=== PATIENT | female | born 1950 | race Caucasian/White ===

== ENCOUNTER 2016-11-28 11:31 | Inpatient (IN) | payer MEDICARE, OTHER ==
[~2016-11-28] VITALS: Ht 152.4 cm; Wt 75.2 kg
[~2016-11-28 11:31] MED LIST: CIPR500T4 PO; HYDR-762 PO
[2016-11-28] MEDS ORDERED: morphine 4 MG/ML VIAL IV STA (12:18)
[2016-11-28] MEDS ORDERED: ONDANSETRON 4 MG INJ IV STA (12:18)
[2016-11-28] MEDS ORDERED: ACETAMINOPHEN 325 MG TAB PO STA (12:18)
[2016-11-28] MEDS ORDERED: SOD CHLORIDE 0.9% 1,000 ML IV STA (12:18)
[2016-11-28 12:57] LABS: ADD SCAN DIFF NO
--- NOTE | 2016-11-28 12:59 | RADRPT ---
PROCEDURE: Chest Radiograph. CLINICAL INDICATION: Back pain TECHNIQUE: Single frontal chest radiograph. COMPARISON: Chest radiograph 01/21/2016 FINDINGS: The cardiomediastinal silhouette is within normal limits. No infiltrate or effusion is seen. Th e bones are intact. IMPRESSION: 1. Unremarkable chest radiograph. RPTAT: AA .Issac Dumas MD, MD Date Time Electronically viewed and signed by .Issac Dumas MD, on 11/28/2016 12:58 .B/
[2016-11-28 13:00] LABS: BASOPHILS % 0.3 % (0.0-2.0); EOSINOPHILS % 0.2 % (0.0-7.0); HEMATOCRIT 42.2 % (37.0-47.0); LYMPHOCYTES # 2.4 10^3/ul (0.8-2.9); LYMPHOCYTES % 17.3 % (15.0-51.0); MEAN CORPUSCULAR HEMOGLOBIN 29.8 pg (29.0-33.0); MEAN CORPUSCULAR HGB CONC 33.2 g/dl (32.0-37.0); MEAN CORPUSCULAR VOLUME 89.8 fl (82.0-101.0); MEAN PLATELET VOLUME 9.4 fl (7.4-10.4); MONOCYTE # 0.9 10^3/ul (0.3-0.9); MONOCYTES % 6.6 % (0.0-11.0); NEUTROPHIL # 10.5 10^3/ul (1.6-7.5); NEUTROPHILS % 75.2 % (39.0-77.0); PLATELET COUNT 303 10^3/UL (140-415); RED CELL DISTRIBUTION WIDTH 12.7 % (11.5-14.5)
[2016-11-28 13:17] LABS: ALBUMIN 4.5 g/dl (3.3-4.9); CHLORIDE 97 mmol/L (97-110)
[2016-11-28 13:18] LABS: POTASSIUM 3.7 mmol/L (3.5-5.1); PROTIME 13.2 Sec (12.2-14.2)
[2016-11-28 13:19] LABS: CREATININE 0.84 mg/dl (0.44-1.00); PARTIAL THROMBOPLASTIN TIME 30.3 Sec (25.0-35.0)
[2016-11-28 13:20] LABS: ALANINE AMINOTRANSFERASE 30 IU/L (13-69); ALBUMIN/GLOBULIN RATIO 1.02; ALKALINE PHOSPHATASE 113 IU/L (42-121); ASPARTATE AMINO TRANSFERASE 27 IU/L (15-46); BLOOD UREA NITROGEN 11 mg/dl (7-20); CALCIUM 9.7 mg/dl (8.4-10.2); CARBON DIOXIDE 26 mmol/L (21-31); GLUCOSE 101 mg/dl (70-220); TOTAL PROTEIN 8.9 g/dl (6.1-8.1)
[2016-11-28 13:36] LABS: TROPONIN-I < 0.012 ng/ml (0.00-0.12)
[2016-11-28 13:44] LABS: URINE BLOOD (Dip) POC 1+ (NEGATIVE)
[2016-11-28] MEDS ORDERED: CEFTRIAXONE 1 GM/50 ML (PMX) 50 ML IVPB ONE (14:00)
[2016-11-28 14:05] LABS: ADD UMIC YES; URINE BILIRUBIN (Dip) NEGATIVE (NEGATIVE); URINE BLOOD (Dip) TRACE (NEGATIVE); URINE COLOR LT. YELLOW (YELLOW); URINE GLUCOSE (Dip) NEGATIVE (NEGATIVE); URINE KETONES (Dip) 15 (NEGATIVE); URINE LEUKOCYTE ESTERASE (Dip) 1+ (NEGATIVE); URINE NITRITE (Dip) POSITIVE (NEGATIVE); URINE TOTAL PROTEIN (Dip) NEGATIVE (NEGATIVE); URINE UROBILINOGEN (Dip) 0.2 E.U./dL (0.1-1.0)
[2016-11-28 14:14] LABS: BACTERIA,URINE MANY; URINE RBCS 0-2 /HPF (0)
[2016-11-28] MEDS ORDERED: VANCOMYCIN 1 GM (PMX) 250 ML IVPB STA (14:25)
[2016-11-28] MEDS ORDERED: SODIUM CHLORIDE 0.9% 1L BAG IV* STA (14:25)
[2016-11-28 14:53] VITALS: TEMP 99.5
[2016-11-28] MEDS ORDERED: ONDANSETRON 4 MG INJ IV PRN ×2 (15:00→16:30)
[2016-11-28] MEDS ORDERED: ACETAMINOPHEN 325 MG TAB PO PRN ×2 (15:00→16:30)
--- NOTE | 2016-11-28 15:41 | ERA ---
ER Documentation Chief Complaint Date/Time DATE: 11/28/16 TIME: 15:33 Chief Complaint LOWER BACK PAIN AND WEAKNESS FOR 2-WEEKS. STRONG SMELLING URINE. HPI This is a very pleasant 66-year-old female that presents to the emergency department complaining of intermittent bilateral flank pain for the past 2 weeks. She has had associated symptoms of dysuria frequency and urgency with foul-smelling urine. The patient had seen her primary care physician, Dr. Odom , 3 times regarding the symptoms and diagnosed with back pain. She was given baclofen and meloxicam. She indicates over the past 24 hours she has had a tactile fever with shaking chills, generalized weakness a decrease in appetite and nausea. She however denies any hemoptysis hematemesis or melanotic stools. She has a past medical history of hypertension and has been compliant with all of her medications. She denies any shortness of breath at rest or exertion. She has no chest pain or pressure that radiates to the neck arm back or jaw. She states that the flank pain is a dull achy sensation, persistent with no alleviating or exacerbating factors he denies any recent remote trauma to her back. She has no changes in her bladder or bowel frequency. She denies any saddle anesthesia. ROS All systems reviewed and are negative except as per history of present illness. Medications Home Meds Active Scripts Hydrocodone Bit-Acetaminophen* ([place]*) 10-325 Mg Tablet, 1 TAB PO Q6 Y for PAIN , #7 TAB Prov:APARNA COTTO MD 01/21/16 Ciprofloxacin Hcl* (Ciprofloxacin Hcl*) 500 Mg Tablet, 500 MG PO BID for 7 Days , TAB Prov:APARNA COTTO MD 01/21/16 Allergies Allergies: Coded Allergies: No Known Allergy (Unverified , 01/21/16) PMhx/Soc Medical and Surgical Hx: pt denies Surgical Hx History of Surgery: No Anesthesia Reaction: No Hx Neurological Disorder: No Hx Respiratory Disorders: No Hx Cardiac Disorders: Yes (HTN) Hx Psychiatric Problems: No Hx Miscellaneous Medical Probl: No Hx Alcohol Use: No Hx Substance Use: No Hx Tobacco Use: No Smoking Status: Never smoker Physical Exam Vitals Vital Signs Date Time Temp Pulse Resp B/P Pulse Ox O2 Delivery O2 Flow Rate FiO2 11/28/16 14:53 99.5 88 17 102/53 99 Room Air 11/28/16 11:34 100.7 105 20 147/67 97 Physical Exam Constitutional:Well-developed. Well-nourished. HEENT:Normocephalic. Atraumatic.Pupils were equal round reactive to light. Dry mucous membranes.No tonsillar exudates. Neck: No nuchal rigidity. No lymphadenopathy. No posterior cervical spine tenderness or step-offs. Respiratory: Not using accessory muscles of respiration.Lungs were clear to auscultation bilaterally. No rhonchi. No rales. No wheezing. Cardiovascular: Regular rate regular rhythm.No murmurs. No rubs were appreciated.S1, S2 normal. Distal pulses are palpable 2+ bilaterally. GI: Abdomen was soft. Nontender. Non Distended. No pulsatile abdominal masses or bruits. No rebound. No guarding. Bowel sounds were present and normal. Bilateral CVA tenderness. Muscle skeletal: Full range of motion of both the upper and lower extremities bilaterally.Normal muscle tone.No assymetrical calf tenderness or swelling. Skin: No petechia, no purpura. No lesions on the palms or the soles of the feet. No maculopapular rash. NEURO: Patient was alert, awake, orientated x3.No facial droop. Gait observed and normal with no ataxia.Speech had regular rate and rhythm. No focal neurological deficits. Result Diagram: 11/28/16 1240 11/28/16 1240 Results 24 hrs Laboratory Tests Test 11/28/16 12:40 11/28/16 13:15 11/28/16 13:47 Activated Partial Thromboplast Time 30.3Sec Alanine Aminotransferase (ALT/SGPT) 30IU/L Albumin 4.5g/dl Albumin/Globulin Ratio 1.02 Alkaline Phosphatase 113IU/L Anion Gap 2 Aspartate Amino Transf (AST/SGOT) 27IU/L Basophils # 0.010^3/ul Basophils % 0.3% Blood Urea Nitrogen 11mg/dl Calcium Level 9.7mg/dl Carbon Dioxide Level 26mmol/L Chloride Level 97mmol/L Creatinine 0.84mg/dl Direct Bilirubin 0.00mg/dl Eosinophils # 0.010^3/ul Eosinophils % 0.2% Globulin 4.40g/dl Glucose Level 101mg/dl Hematocrit 42.2% Hemoglobin 14.0g/dl INR International Normalized Ratio 1.00 Indirect Bilirubin 1.0mg/dl Lactic Acid Level 1.1mmol/L Lipase 35U/L Lymphocytes # 2.410^3/ul Lymphocytes % 17.3% Mean Corpuscular Hemoglobin 29.8pg Mean Corpuscular Hemoglobin Concent 33.2g/dl Mean Corpuscular Volume 89.8fl Mean Platelet Volume 9.4fl Monocytes # 0.910^3/ul Monocytes % 6.6% Neutrophils # 10.510^3/ul Neutrophils % 75.2% Nucleated Red Blood Cells # 0.010^3/ul Nucleated Red Blood Cells % 0.0/100WBC Platelet Count 38063^3/UL Potassium Level 3.7mmol/L Prothrombin Time 13.2Sec Prothrombin Time Ratio 1.0 Red Blood Count 4.7010^6/ul Red Cell Distribution Width 12.7% Sodium Level 121mmol/L Total Bilirubin 1.0mg/dl Total Protein 8.9g/dl Troponin I < 0.012ng/ml White Blood Count 14.010^3/ul Urine Bacteria MANY Urine Bilirubin NEGATIVE Urine Clarity CLEAR Urine Color LT. YELLOW Urine Epithelial Cells MODERATE Urine Glucose NEGATIVE% Urine Hemoglobin TRACE Urine Ketones 15 Urine Leukocyte Esterase 1+ Urine Microscopic RBC 0-2/HPF Urine Microscopic WBC 10-25/HPF Urine Nitrite POSITIVE Urine Specific [place] 1.020 Urine Total Protein NEGATIVE Urine Urobilinogen 0.2 E.U./dL Urine pH 5.5 Bedside Urine Blood 1+ Bedside Urine Glucose (UA) Negative Bedside Urine Ketones (LAB) 1+ Bedside Urine Leukocyte Esterase (L Trace Bedside Urine Nitrite (LAB) Positive Bedside Urine Protein (LAB) 1+ Bedside Urine pH (LAB) 5.5 Current Medications Medications (Trade) Dose Ordered Sig/Blake Route PRN Reason Start Time Stop Time Status Last Admin Dose Admin Acetaminophen 650 mg 650 mg ONCE STAT PO 11/28/16 12:18 11/28/16 12:20 DC 11/28/16 12:57 Sodium Chloride (NS) 1,000 ml @ 1,000 mls/hr Q1H STAT IV 11/28/16 12:18 11/28/16 13:17 DC 11/28/16 12:57 Morphine Sulfate (morphine) 4 mg ONCE STAT IV 11/28/16 12:18 11/28/16 12:20 DC 11/28/16 12:58 Ondansetron HCl 4 mg 4 mg ONCE STAT IV 11/28/16 12:18 11/28/16 12:20 DC 11/28/16 12:58 Ceftriaxone Sodium (Rocephin) 50 ml @ 100 mls/hr ONCE ONCE IVPB 11/28/16 14:00 11/28/16 14:29 DC 11/28/16 14:00 Sodium Chloride 1230 ml 1,230 ml BOLUS OVER 2 HOURS STAT IV* 11/28/16 14:25 11/28/16 14:27 DC 11/28/16 14:37 Vancomycin HCl (Vancocin) 250 ml @ 125 mls/hr ONCE STAT IVPB 11/28/16 14:25 11/28/16 16:24 11/28/16 14:37 Ondansetron HCl (Zofran Inj) 4 mg ER BRIDGE PRN IV NAUSEA AND/OR VOMITING 11/28/16 15:00 11/29/16 14:59 Acetaminophen (Tylenol Tab) 650 mg ER BRIDGE PRN PO MILD PAIN/FEVER 11/28/16 15:00 11/29/16 14:59 Procedures/MDM The patient presented to the emergency department with back pain. My differential diagnosis included but was not limited to spinal origins of the pain such as fracture, osteomyelitis, epidural abscess, neoplasm, spondylolishtesis, discogenic, cauda equina syndrome or musculoligamentous. Nonspinal causes such as AAA, upper UTI, renal colic, aortic dissection, abdominal neoplasm were also considered as an etiology into their pain. IV access was established by nursing staff. The patient met SIRS and sepsis criteria and therefore the patient was placed in a commercial airplane pilot continuous pulse oximetry given aspirin for analgesic medication and a total of 30 cc/kg of normal saline. The patient was given IV ceftriaxone & as she had a urinary tract infection with concerns for pyelonephritis. 12 Lead EKG tracing ordered and reviewed by myself showed: Normal sinus rhythm of 94 bpm and no arrhythmia. MS interval normal. QRS duration normal. No ST segment elevation No ST segment depression. No changes consistent with acute ischemia. The patient was also hyponatremic with a serum sodium of 121. The patient generalized myalgias, increased sleepiness, and therefore did feel she required admission to the telemetry services to be further monitored for any further changes in the patient's hyponatremia. Given the patient had no neurological deficits at this time I did not start hypertonic saline. I will replenish the patient's intravascular volume with IV normal saline and repeat the patient's electrolytes to see if there is improvement of her serum sodium. Patient's infectious symptoms have not stabilized and the patient is at risk of rapid decompensation. The patient will be admitted for careful hydration, antibiotic therapy, and infectious source control. Sepsis Assessment: Infectious Source: pyleonephritis Severe Sepsis Managment: Blood Cultures X 2 before broad spectrum antibiotics initiated within 3 hours of recognition. 30 ml/kg NS bolus Completed Initial Lactate: normal Repeat Lactate not indicated as initial < 2.0 I considered further perfusion assessment with CVP measurement, SCVO2, bedside ultrasound volume assessment, passive leg raise, trial of further fluid bolus. And preceded with IV fluid hydration The patient will be admitted in serious condition to the hospitalist Dr. Smith. Critical Care: Time: 40 minutes Treatments/Evaluations: Close monitoring and treatment of unstable vital signs, cardiorespiratory, and neurologic status, while maintaining tight balance of fluid, respiratory, and cardiac interventions. Time does not include performing any of the above billable procedures. Departure Diagnosis: Primary Impression: Pyelonephritis Additional Impressions: Hyponatremia Sepsis Qualified Code: A41.9 - Sepsis, due to unspecified organism Condition: Serious SERINA CANAS Nov 28, 2016 15:41
[2016-11-28 16:05] LABS: ANION GAP 18 (8-16); SODIUM 137 mmol/L (135-144)
[2016-11-28] MEDS ORDERED: NACL 0.9% 3 ML SYG IV SCH (16:30)
[2016-11-28] MEDS ORDERED: ZOLPIDEM 5 MG TAB PO PRN (16:30)
[2016-11-28] MEDS ORDERED: DOCUSATE SODIUM 100 MG CAP PO PRN (16:30)
[2016-11-28] MEDS ORDERED: morphine 2 MG INJ IV PRN (16:30)
[2016-11-28] MEDS ORDERED: HYDROCODONE/APAP (5/325) TAB PO PRN (16:30)
--- NOTE | 2016-11-28 17:12 | HP ---
DATE OF ADMISSION: 11/28/2016 CHIEF COMPLAINT: Left-sided back pain. HISTORY OF PRESENT ILLNESS: The patient is a 66-year-old female with no medical history. The patie nt presents with 2 weeks of lower back pain. She states that she did have some dysuria, but that is now resolved. In the ED, she was noted to have an elevated WBC count and UA suggesting of a UTI. She has no other complaints at this time. She denies any burning urination at this time. PAST MEDICAL HISTORY: Denies. PAST SURGICAL HISTORY: Denies. HOME MEDICATIONS: Denies. ALLERGIES: NO KNOWN DRUG ALLERGIES. FAMILY HISTORY: Diabetes. SOCIAL HISTORY: Denies any alcohol, tobacco or drugs. REVIEW OF SYSTEMS: A 12-point review of systems negative except as in HPI. PHYSICAL EXAMINATION: VITAL SIGNS: Temperature max 100.7, temperature current is 99.5, pulse 88, respiratory rate 17, blo od pressure is 102/53, saturation 99% on room air. GENERAL: No acute distress, alert and oriented. HEENT: Normocephalic, atraumatic. Pupils equal, round, and reactive to light. LUNGS: Clear to auscultation. CARDIOVASCULAR: Regular rate and rhythm. ABDOMEN: Nondistended, nontender, soft. EXTREMITIES: No clubbing, cyanosis, or edema. LABORATORY DATA: WBC 14.0, hemoglobin is 14.0, and platelets are 303. Chemistry within normal limi ts except for anion gap of 18. Lactic acid is 1.1. Total protein is 8.9. is 4.4. INR is 1. UA positive nitrites, leukocyte esterase is 1+, WBCs 10 to 25. DIAGNOSTICS: Chest x-ray is unremarkable. ASSESSMENT AND PLAN: 1. Sepsis secondary to pyelonephritis. We will treat with Rocephin IV. We will follow up on urine culture. 2. Prophylaxis: Lovenox. Dictated By: EVERETTE HOFFMAN MD BS/NTS Conf#: [id number] DID#: [id number]
[2016-11-28] MEDS: SOD CHLORIDE 0.9% 1,000 ML IV SCH (18:58)
[2016-11-28 22:00] VITALS: BP 119/59; PULSE 101; RESP 18; Ht 152.4 cm; Wt 75.2 kg
[2016-11-28 22:05] VITALS: PULSE 87
[2016-11-28] MEDS ORDERED: BACL10TA PO (22:37)
[2016-11-28] MEDS ORDERED: MELO-109 PO (22:37)
[2016-11-28] MEDS ORDERED: BENA10TA48 PO (22:37)
[2016-11-29] VITALS (8 sets, daily range): BP systolic 102–132; BP diastolic 54–61; PULSE 63–84; RESP 18
[2016-11-29] MEDS: SOD CHLORIDE 0.9% 1,000 ML IV SCH ×3 (00:21→16:30)
[2016-11-29 06:55] LABS: ADD SCAN DIFF NO
[2016-11-29 07:06] LABS: BASOPHILS % 0.3 % (0.0-2.0); EOSINOPHILS # 0.1 10^3/ul (0.0-0.5); EOSINOPHILS % 1.2 % (0.0-7.0); HEMATOCRIT 33.8 % (37.0-47.0); HEMOGLOBIN 11.2 g/dl (12.0-16.0); LYMPHOCYTES # 2.6 10^3/ul (0.8-2.9); LYMPHOCYTES % 24.4 % (15.0-51.0); MEAN CORPUSCULAR HEMOGLOBIN 30.3 pg (29.0-33.0); MEAN CORPUSCULAR HGB CONC 33.1 g/dl (32.0-37.0); MEAN CORPUSCULAR VOLUME 91.4 fl (82.0-101.0); MEAN PLATELET VOLUME 9.9 fl (7.4-10.4); MONOCYTE # 0.9 10^3/ul (0.3-0.9); MONOCYTES % 7.9 % (0.0-11.0); NEUTROPHILS % 65.8 % (39.0-77.0); PLATELET COUNT 246 10^3/UL (140-415); RED CELL DISTRIBUTION WIDTH 12.7 % (11.5-14.5); WHITE BLOOD COUNT 10.7 10^3/ul (4.8-10.8)
[2016-11-29 07:13] LABS: POTASSIUM 3.9 mmol/L (3.5-5.1)
[2016-11-29 07:15] LABS: CREATININE 0.66 mg/dl (0.44-1.00)
[2016-11-29 07:16] LABS: CALCIUM 8.7 mg/dl (8.4-10.2); CHOL/HDL RATIO 3.5 RATIO; PHOSPHORUS 3.1 mg/dl (2.5-4.9)
[2016-11-29 07:31] LABS: T3 UPTAKE 35.8 % (23.5-40.5)
[2016-11-29] MEDS ORDERED: ENOXAPARIN 40 MG/0.4 ML SYG SC SCH (09:00)
--- NOTE | 2016-11-29 11:43 | PDOCDIS ---
Discharge Instructions CONDITION Patient Condition: Good HOME CARE INSTRUCTIONS: Diet Instructions: Reduced Calorie ACTIVITY: Activity Restrictions: No Restrictions FOLLOW UP/APPOINTMENTS Appointments F/U WITH YOUR PCP IN 1-2 WEEKS EVERETTE HOFFMAN Nov 29, 2016 11:42
[2016-11-29] MEDS ORDERED: CIPR500T4 PO (11:51)
[2016-11-29] MEDS ORDERED: CEFTRIAXONE 1 GM/50 ML (PMX) 50 ML IVPB SCH (14:00)
--- NOTE | 2016-11-29 16:29 | DS ---
DATE OF ADMISSION: 11/28/2016 DATE OF DISCHARGE: 11/29/2016 DISCHARGE DIAGNOSIS: Sepsis secondary to a urinary tract infection - now resolved. Discharged with p.o. antibiotics. HOSPITAL COURSE: The patient is a 66-year-old female with no medical history. The patient presents with signs of sepsis, as well as lower back pain. She did have some dysuria prior to arrival, but had resolved. When she arrived, she did have signs of sepsis with a white count of 14.0, and T-max of 100.7. The patient was started on Rocephin. Her sepsis did resolve. She was felt to be stable for discharge. Her pain was actually mostly in her lower abdomen, suggesting more of a cystitis pic ture. Her pain in her lower back was bilateral and likely musculoskeletal in origin; but, nonethele ss, the patient was felt to require p.o. antibiotics on discharge. The patient did receive IV fluid s. The patient was felt to be stable for discharge and on day of discharge, vitals, labs, physical exam were stable. She had no acute complaints; her questions were answered. CONDITION ON DISCHARGE: Stable. DISPOSITION: To home. MEDICATIONS: Patient is to continue usual home medications. She was given a prescription for Cipro 500 mg p.o. b.i.d. for 7 days. FOLLOWUP: She is to follow up with her PCP in 1 to 2 weeks. TIME SPENT: Greater than 30 minutes were spent in coordinating discharge of patient. Dictated By: EVERETTE HOFFMAN MD BS/NTS Conf#: [id number] DID#: [id number]
[2016-11-30] MEDS ORDERED: INFLUENZA VIRUS VACCINE 0.5 ML (DISPENSING) IM* ONE (09:00)
== END 2016-11-29 16:08 | disposition home or self-care (01) | DRG 872 ==
LOC: FTE 11:31 → TEL 14:53
PROVIDERS: ADMIT Hospitalist; ATTEND Hospitalist
DX: A41.9 Sepsis, unspecified organism (principal); E87.1 Hypo-osmolality and hyponatremia; N39.0 Urinary tract infection, site not specified
CPT/HCPCS: 36415; 71010; 80048; 80053; 80061; 81001; 81003; 83036; 83605; 83690; 83735; 84100; 84436; 84479; 84484; 85025; 85610; 85730; 87040; 87086; 93005; 96361; 96365; 96366; 96367; 96375; J0696; J1650; J2270; J2405; J3370; J7030

== ENCOUNTER 2017-07-06 11:09 | Emergency (ER) | payer MEDICARE, OTHER ==
[~2017-07-06] VITALS: Ht 149.9 cm; Wt 75.5 kg
[~2017-07-06 11:09] MED LIST changes: +BACL10TA PO; +BENA10TA48 PO; +MELO-216 PO
[2017-07-06 11:33] VITALS: Ht 149.9 cm; Wt 75.5 kg
[2017-07-06] MEDS ORDERED: ONDANSETRON (ODT) 4 MG TAB ODT STA (12:15)
[2017-07-06] MEDS ORDERED: HYDROCODONE/APAP (5/325) TAB PO ONE (12:30)
--- NOTE | 2017-07-06 13:18 | RADRPT ---
PROCEDURE: CT Brain without contrast. CLINICAL INDICATION: Headache. TECHNIQUE: A CT of the brain was performed on multidetector high-resolution CT scanner utilizing a xial sections from the skull base through the vertex without contrast. The scan was reviewed in sof t tissue brain and high frequency resolution bone algorithm windows. Images were reviewed on a high -resolution PACS workstation. One or more the following does reduction techniques were utilized: Aut omated exposure control, adjustment of the mA/ or kV according to patient's size, or use of iterativ e reconstruction technique. The exam CTDI = 43.48 mGy and the DLP = 630.2 mGy-cm. COMPARISON: None available. FINDINGS: The ventricles and sulci are mildly prominent indicative of volume loss. There is no intracranial h emorrhage, mass effect or midline shift. No abnormal intra-axial or extra-axial fluid collections a re seen. The ibarra/white matter differentiation is preserved. There are mild scattered foci of hypoattenuation in the white matter, which are nonspecific in etiol ogy but likely reflect chronic small vessel ischemic changes. There are mild intracranial vascular calcifications consistent with atherosclerosis. The visualized paranasal sinuses are essentially ludmila ar. IMPRESSION: 1. No acute intracranial hemorrhage, transcortical infarction or mass effect. 2. Mild intracranial atherosclerosis and chronic small vessel ischemic changes. 3. Mild generalized cerebral volume loss. RPTAT: JJ .Spring Washington MD, MD Date Time Electronically viewed and signed by .Spring Washington MD, MD on 07/06/2017 13:17 .N/
[2017-07-06] MEDS ORDERED: HYDR-906 PO (13:36)
--- NOTE | 2017-07-06 15:40 | ERD ---
ER Documentation Chief Complaint Date/Time DATE: 07/06/17 TIME: 15:33 Chief Complaint RIGHT EYE PAIN AND HAD SURGERY LAST MONTH HPI 67-year-old female complaining of right eye blurriness. Patient had back surgery 1 month ago. Patient states ever since surgery her vision has improved however her right eye vision is not as improved as her left eye vision. Patient states she also has a headache. She has been seen by her weight training instructor. Denies any rashes. Denies fever. Has not taken medications for headaches. Denies vomiting. Denies sinus pressure. Denies ear pain. ROS All systems reviewed and are negative except as per history of present illness. Medications Home Meds Active Scripts Hydrocodone/Acetaminophen ([place] 5-325 Tablet) 1 Each Tablet, 1 TAB PO Q6H Y for PAIN, #7 TAB Prov:ADITYA MEDINA PA-C 07/06/17 Ciprofloxacin Hcl* (Ciprofloxacin Hcl*) 500 Mg Tablet, 500 MG PO BID for 7 Days , TAB Prov:EVERETTE HOFFMAN 11/29/16 Hydrocodone Bit-Acetaminophen* ([place]*) 10-325 Mg Tablet, 1 TAB PO Q6 Y for PAIN , #7 TAB Prov:APARNA COTTO MD 01/21/16 Ciprofloxacin Hcl* (Ciprofloxacin Hcl*) 500 Mg Tablet, 500 MG PO BID for 7 Days , TAB Prov:APARNA COTTO MD 01/21/16 Reported Medications Meloxicam* (Meloxicam*) 7.5 Mg Tablet, 7.5 MG PO DAILY, #30 TAB 11/28/16 Benazepril Hcl* (Benazepril Hcl*) 10 Mg Tablet, 10 MG PO DAILY, #30 TAB 11/28/16 Baclofen* (Baclofen*) 10 Mg Tablet, 10 MG PO Q8, TAB 11/28/16 Allergies Allergies: Uncoded Allergies: PENICILLIN (Allergy, Intermediate, 07/06/17) PMhx/Soc History of Surgery: Yes (cataract) Anesthesia Reaction: No Hx Neurological Disorder: No Hx Respiratory Disorders: No Hx Cardiac Disorders: No Hx Psychiatric Problems: No Hx Miscellaneous Medical Probl: No Hx Alcohol Use: No Hx Substance Use: No Hx Tobacco Use: No Smoking Status: Never smoker Physical Exam Vitals Vital Signs Date Time Temp Pulse Resp B/P Pulse Ox O2 Delivery O2 Flow Rate FiO2 07/06/17 11:33 97.8 70 18 181/77 97 Physical Exam GENERAL: The patient is well-appearing, well-nourished, in no acute distress HEENT: Atraumatic. Conjunctivae are pink. Pupils equal, round, and reactive to light. There is no scleral icterus. Tympanic membranes clear bilaterally. Oropharynx clear. NECK: C-spine is soft and supple. There is no meningismus. There is no cervical lymphadenopathy. CHEST: Clear to auscultation bilaterally. There are no rales, wheezes or rhonchi. HEART: Regular rate and rhythm. No murmurs, clicks, rubs or gallops. No S3 or S4. BACK: No midline or flank tenderness. NEUROLOGIC: Alert and oriented. Cranial nerves II through XII intact. Motor strength in all 4 extremities with 5 out of 5 strength. Sensation grossly intact. Normal speech and gait. SKIN: There is no apparent rash or petechiae. The skin is warm and dry. Results 24 hrs Current Medications Medications (Trade) Dose Ordered Sig/Blake Route PRN Reason Start Time Stop Time Status Last Admin Dose Admin Acetaminophen/ Hydrocodone Bitart ([place] (5/325)) 1 tab ONCE ONCE PO 07/06/17 12:30 07/06/17 12:31 DC 07/06/17 12:22 Ondansetron HCl (Zofran Odt) 4 mg ONCE STAT ODT 07/06/17 12:15 07/06/17 12:16 DC 07/06/17 12:21 Procedures/MDM DIAGNOSTIC IMAGING REPORT Patient: KAREN REED : 1950 Age: 67 Sex: F MR #: [id number] DOS: 07/06/17 1215 Ordering MD: CARIDAD MEDINA PA-C Location: [facility] Room/Bed: PROCEDURE: CT Brain without contrast. CLINICAL INDICATION: Headache. TECHNIQUE: A CT of the brain was performed on multidetector high-resolution CT scanner utilizing axial sections from the skull base through the vertex without contrast. The scan was reviewed in soft tissue brain and high frequency resolution bone algorithm windows. Images were reviewed on a high- resolution PACS workstation. One or more the following does reduction techniques were utilized: Automated exposure control, adjustment of the mA/ or kV according to patient's size, or use of iterative reconstruction technique. The exam CTDI = 43.48 mGy and the DLP = 630.2 mGy-cm. COMPARISON: None available. FINDINGS: The ventricles and sulci are mildly prominent indicative of volume loss. There is no intracranial hemorrhage, mass effect or midline shift. No abnormal intra- axial or extra-axial fluid collections are seen. The ibarra/white matter differentiation is preserved. There are mild scattered foci of hypoattenuation in the white matter, which are nonspecific in etiology but likely reflect chronic small vessel ischemic changes. There are mild intracranial vascular calcifications consistent with atherosclerosis. The visualized paranasal sinuses are essentially clear. IMPRESSION: 1. No acute intracranial hemorrhage, transcortical infarction or mass effect. 2. Mild intracranial atherosclerosis and chronic small vessel ischemic changes. 3. Mild generalized cerebral volume loss. MDM: I have low suspicion for intracranial hemorrhage or mass-effect. Patient states that she has had no changes to her vision of the right eye over the last month since her procedure. Patient is concerned that her cataract surgery did not improve her vision of the right eye as well as her left eye. I told patient that she needed to be seen by her weight training instructor to determine why seizure was not as successful on the right versus the left. I have low suspicion for neuro deficits or intracranial emergencies at this time. Patient will be discharged with strict ER precautions and told to follow-up with primary care within 1-2 days for close evaluation. Patient's exam is not concerning and vital signs are stable. All questions answered discharge Departure Diagnosis: Primary Impression: Headache Condition: Stable Patient Instructions: Self-Care for Headaches Referrals: [facility] YOU HAVE RECEIVED A MEDICAL SCREENING EXAM AND THE RESULTS INDICATE THAT YOU DO NOT HAVE A CONDITION THAT REQUIRES URGENT TREATMENT IN THE EMERGENCY DEPARTMENT. FURTHER EVALUATION AND TREATMENT OF YOUR CONDITION CAN WAIT UNTIL YOU ARE SEEN IN YOUR DOCTORS OFFICE WITHIN THE NEXT 1-2 DAYS. IT IS YOUR RESPONSIBILITY TO MAKE AN APPOINTMENT FOR FOLOW-UP CARE. IF YOU HAVE A PRIMARY DOCTOR --you should call your primary doctor and schedule an appointment IF YOU DO NOT HAVE A PRIMARY DOCTOR YOU CAN CALL OUR PHYSICIAN REFERRAL HOTLINE AT IF YOU CAN NOT AFFORD TO SEE A PHYSICIAN YOU CAN CHOSE FROM THE FOLLOWING [facility] [address] [facility]. [facility] [place] [address] [place] [address] [facility] [address] [facility] [address] [facility] [address] [facility]. [facility] [address] Additional Instructions: FOLLOW UP WITH YOUR PRIMARY CARE PHYSICIAN TOMORROW.Return to this facility if you are not improving as expected. ADITYA MEDINA PA-C Jul 06, 2017 15:40
== END 2017-07-06 14:10 | disposition home or self-care (01) ==
LOC: FTE 11:09
DX: R51 Headache (principal)
CPT/HCPCS: 70450

== ENCOUNTER 2017-07-24 11:39 | Emergency (ER) | payer MEDICARE, OTHER ==
[~2017-07-24] VITALS: Wt 77.3 kg
[~2017-07-24 11:39] MED LIST changes: +HYDR-906 PO
[2017-07-24] MEDS ORDERED: DIPHENHYDRAMINE 50 MG INJ IV ONE (13:30)
[2017-07-24] MEDS ORDERED: SOD CHLORIDE 0.9% 500 ML IV STA (13:30)
[2017-07-24] MEDS ORDERED: FAMOTIDINE 20 MG INJ IV STA (13:30)
--- NOTE | 2017-07-24 15:30 | ERD ---
ER Documentation Chief Complaint Chief Complaint mid abd pain, r. flank pain, rash on body HPI This is a 67-year-old female who presents to the emergency room for evaluation of abdominal cramping, and a rash on her body. The patient states that she has had this cramping in her abdomen for the past 48 hours and states that she has not had any nausea, or vomiting or diarrhea. She localizes it to the total portion of abdomen and describes it as a cramping sensation with no aggravating or relieving factors. She states that she came to the ER mostly for evaluation of a rash that she has. She stated that the rash started 48 hours ago as well and she states that it is not itchy and she denies any new foods, or soaps at home. The patient was denying any new medications however as a was reviewing her home meds and noticed that she was started on allopurinol 1 week ago for gout ROS All systems reviewed and are negative except as per history of present illness. Medications Home Meds Active Scripts Hydrocodone/Acetaminophen ([place] 5-325 Tablet) 1 Each Tablet, 1 TAB PO Q6H Y for PAIN, #7 TAB Prov:ADITYA MEDINA PA-C 07/06/17 Ciprofloxacin Hcl* (Ciprofloxacin Hcl*) 500 Mg Tablet, 500 MG PO BID for 7 Days , TAB Prov:EVERETTE HOFFMAN 11/29/16 Hydrocodone Bit-Acetaminophen* ([place]*) 10-325 Mg Tablet, 1 TAB PO Q6 Y for PAIN , #7 TAB Prov:APARNA COTTO MD 01/21/16 Ciprofloxacin Hcl* (Ciprofloxacin Hcl*) 500 Mg Tablet, 500 MG PO BID for 7 Days , TAB Prov:APARNA COTTO MD 01/21/16 Reported Medications Meloxicam* (Meloxicam*) 7.5 Mg Tablet, 7.5 MG PO DAILY, #30 TAB 11/28/16 Benazepril Hcl* (Benazepril Hcl*) 10 Mg Tablet, 10 MG PO DAILY, #30 TAB 11/28/16 Baclofen* (Baclofen*) 10 Mg Tablet, 10 MG PO Q8, TAB 11/28/16 Allergies Allergies: Uncoded Allergies: PENICILLIN (Allergy, Intermediate, 07/06/17) PMhx/Soc History of Surgery: Yes (cataract) Anesthesia Reaction: No Hx Neurological Disorder: No Hx Respiratory Disorders: No Hx Cardiac Disorders: No Hx Psychiatric Problems: No Hx Miscellaneous Medical Probl: No Hx Alcohol Use: No Hx Substance Use: No Hx Tobacco Use: No Smoking Status: Never smoker Physical Exam Vitals Vital Signs Date Time Temp Pulse Resp B/P Pulse Ox O2 Delivery O2 Flow Rate FiO2 07/24/17 11:43 99.3 94 20 113/56 98 Physical Exam Const: No acute distress Head: Atraumatic Eyes: Normal Conjunctiva ENT: Normal External Ears, Nose and Mouth. Neck: Full range of motion..~ No meningismus. Resp: Clear to auscultation bilaterally Cardio: Regular rate and rhythm, no murmurs Abd: Soft, non tender, non distended. Normal bowel sounds Skin: Maculopapular rash over torso, upper and lower extremities, negative skin sloughing, no target lesions, no petechiae or rashes Back: No midline or flank tenderness Ext: No cyanosis, or edema Neur: Awake and alert Psych: Normal Mood and Affect Result Diagram: 07/24/17 1350 07/24/17 1350 Results 24 hrs Laboratory Tests Test 07/24/17 13:50 White Blood Count 6.110^3/ul Red Blood Count 4.3010^6/ul Hemoglobin 12.7g/dl Hematocrit 39.2% Mean Corpuscular Volume 91.2fl Mean Corpuscular Hemoglobin 29.5pg Mean Corpuscular Hemoglobin Concent 32.4g/dl Red Cell Distribution Width 13.1% Platelet Count 97091^3/UL Mean Platelet Volume 9.9fl Neutrophils % 64.5% Lymphocytes % 16.6% Monocytes % 7.9% Eosinophils % 10.2% Basophils % 0.5% Nucleated Red Blood Cells % 0.0/100WBC Neutrophils # 3.910^3/ul Lymphocytes # 1.010^3/ul Monocytes # 0.510^3/ul Eosinophils # 0.610^3/ul Basophils # 0.010^3/ul Nucleated Red Blood Cells # 0.010^3/ul Sodium Level 141mmol/L Potassium Level 4.5mmol/L Chloride Level 102mmol/L Carbon Dioxide Level 28mmol/L Anion Gap 16 Blood Urea Nitrogen 14mg/dl Creatinine 0.85mg/dl Glucose Level 105mg/dl Calcium Level 9.5mg/dl Total Bilirubin 0.5mg/dl Direct Bilirubin 0.00mg/dl Indirect Bilirubin 0.5mg/dl Aspartate Amino Transf (AST/SGOT) 54IU/L Alanine Aminotransferase (ALT/SGPT) 70IU/L Alkaline Phosphatase 85IU/L Total Protein 7.6g/dl Albumin 4.8g/dl Globulin 2.80g/dl Albumin/Globulin Ratio 1.71 Lipase 45U/L Current Medications Medications (Trade) Dose Ordered Sig/Blake Route PRN Reason Start Time Stop Time Status Last Admin Dose Admin Sodium Chloride (NS) 500 ml @ 500 mls/hr Q1H STAT IV 07/24/17 13:30 07/24/17 14:29 DC 07/24/17 14:02 Famotidine (Pepcid Iv) 20 mg ONCE STAT IV 07/24/17 13:30 07/24/17 13:31 DC 07/24/17 14:02 Diphenhydramine HCl (Benadryl) 25 mg ONCE ONCE IV 07/24/17 13:30 07/24/17 13:31 DC 07/24/17 14:02 Procedures/MDM This 67-year-old female presents to the ER for evaluation of abdominal cramping , and a rash. When I evaluated this patient she was in no acute distress however did not maculopapular rash. The patient was given Benadryl in the emergency room, lab work is within normal limits at this time. She did recently start allopurinol 1 week ago and I advised her to discontinue the use of it. Her rashes not represent erythema marginated or erythema multiform at this time. There is negative Nikolsky sign, no mucous membrane involvement. The patient will be discharged home with a prescription for prednisone. She was also complaining of a headache that she has had for 2 months and will be given a prescription for Tylenol Extra Strength Departure Diagnosis: Primary Impression: Abdominal pain Additional Impression: Drug rash Condition: Stable YANETH VILLA DO Jul 24, 2017 15:30
[2017-07-24] MEDS ORDERED: BEN25 PO (15:33)
[2017-07-24] MEDS ORDERED: ACET500C5 PO (15:33)
== END 2017-07-24 16:10 | disposition home or self-care (01) ==
LOC: E/R 11:39
DX: R10.84 Generalized abdominal pain (principal); T50.4X5A Adverse effect of drugs affecting uric acid metabolism, initial encounter; R21 Rash and other nonspecific skin eruption
CPT/HCPCS: 80053; 83690; 85025; J1200; J7040; 36415; 96374; 96375